=== PATIENT | female | born 1950 ===

== ENCOUNTER 2019-03-11 06:51 | Day surgery (SDC) | payer MEDICARE, OTHER ==
--- NOTE | 2019-03-04 15:36 | Opthalmology H&P ---
Ophthalmology H&P H&P Chief Complaint: decreased vision in right eye HPI Vision Affects Ability to: read, manage personal affairs HPI Narrative blurry vision Exam Visual Acuity: OD 20/100 OS 20/60 Tension: OD 12 OS 12 Eye Exam: normal OU: external exam, palpebral fissure-width, marginal reflex distance, levator function, corneas, anterior chambers, fundus exam; findings: lens - NS Cataracts OU Assessment/Plan Treatment Plan: cataract extraction w/ lens implant Goals of Treatment: improvement of vision, enhance quality of life Attestation Attestation The risks and benefits of the surgery as well as alternative procedures were explained to the patient in detail. Pipo Duval MD Mar 04, 2019 15:36
--- NOTE | 2019-03-04 15:38 | Pre-Procedure Note/Attestation ---
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 I attest that, if there was a reasonable possibility of needing a blood transfusion, the patient (or the patient's legal bottling equipment sales representative) was given the [facility] standardized written summary, pursuant to the Balwinder Cecilio Blood Safety Act ([place] Health and Safety Code # 1645, as amended). I attest that I re-evaluated the patient just prior to the surgery and that there has been no change in the patient's H&P, except as documented below: Pipo Duval MD Mar 04, 2019 15:38
--- NOTE | 2019-03-08 10:30 | NUR ---
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
[~2019-03-11] VITALS: Ht 152.4 cm; Wt 46.7 kg
[2019-03-11] VITALS (8 sets, daily range): BP systolic 117–138; BP diastolic 56–75
[2019-03-11] MEDS ORDERED: Tropicamide 1% Opth 15ml Soln RIGHT EYE SCH (07:00)
[2019-03-11] MEDS ORDERED: Cyclopentolate 1% Opth Sol 2ml RIGHT EYE SCH (07:00)
[2019-03-11] MEDS ORDERED: Proparacaine 0.5% Opth Soln 15ml RIGHT EYE ONE (07:00)
[2019-03-11] MEDS ORDERED: Akten 3.5% 1ml Btl RIGHT EYE ONE (07:00)
[2019-03-11] MEDS ORDERED: Diclofenac Sod 0.1% Op Soln RIGHT EYE SCH (07:00)
[2019-03-11] MEDS ORDERED: Tetracaine 0.5% Opth 4ml Soln RIGHT EYE ONE (07:00)
[2019-03-11] MEDS ORDERED: Phenylephrine 10% Opth Soln 5ml RIGHT EYE SCH (07:00)
[2019-03-11] MEDS ORDERED: Tobramycin Op Soln 0.3% 5ml RIGHT EYE SCH (09:30)
[2019-03-11] MEDS ORDERED: DICLOFENAC SODI75 MG ORAL (09:38)
[2019-03-11] MEDS ORDERED: FOLIC ACID1 MG ORAL (09:38)
[2019-03-11] MEDS ORDERED: ZOFRAN4 M3 ORAL (09:38)
[2019-03-11] MEDS ORDERED: METHOTREXATE2.5 MG PO (09:38)
[2019-03-11] MEDS ORDERED: HYDROXYCHLOROQ200 M1 PO (09:38)
[2019-03-11] MEDS ORDERED: GABAPENTIN300 MG ORAL (09:38)
[2019-03-11] MEDS ORDERED: NORCO 5-325 TA1 EACH ORAL (09:38)
[2019-03-11] MEDS ORDERED: VITAMIN D250000 UNI1 ORAL (09:38)
[2019-03-11] MEDS ORDERED: NAMENDA5 MG ORAL (09:38)
[2019-03-11] MEDS ORDERED: BSS 15ml BTL ONE (12:28)
[2019-03-11] MEDS ORDERED: Lidocaine 4% Amp ONE (12:28)
[2019-03-11] MEDS ORDERED: EPINEPHrine 1mg/1ml Amp ONE (12:28)
[2019-03-11] MEDS ORDERED: BSS 500ml btl ONE (12:28)
[2019-03-11] MEDS ORDERED: Polysporin Opth Oint 3.5gm ONE (12:28)
[2019-03-11] MEDS ORDERED: Povidone-Iodine 5% opth solution ONE (12:29)
[2019-03-11] MEDS ORDERED: Dexamethasone 4mg/ml vial ONE (12:30)
[2019-03-11] MEDS ORDERED: Pilocarpine 1% Opth 15ml Soln ONE (12:30)
[2019-03-11] MEDS ORDERED: Pred Forte 1% Opth Susp 1ml ONE (12:30)
[2019-03-11] MEDS ORDERED: LR 1000ml ONE (12:30)
--- NOTE | 2019-03-11 12:35 | Anethesia Preoperative Eval ---
Anesthesia Pre-op PMH/ROS General Date of Evaluation: Mar 11, 2019 Anesthesiologist: Sam ASA Score: ASA 2 Mallampati Score Class I : Soft palate, uvula, fauces, pillars visible Class II: Soft palate, uvula, fauces visible Class III: Soft palate, base of uvula visible Class IV: Only hard plate visible Mallampati Classification: Class II Surgeon: Simin Diagnosis: right cataract Surgical Procedure: right cataract extrction with IOl Anesthesia History: none Family History: no anesthesia problems Allergies: Coded Allergies: No Known Allergies (Unverified , 03/04/19) Medications: see eMAR Patient NPO?: Yes NPO Date: Mar 10, 2019 NPO Time: 20:00 Past Medical History Cardiovascular: Denies: HTN, CAD, [place], valve dz, arrhythmia, other Pulmonary: Denies: asthma, COPD, ANGEL, other Gastrointestinal/Genitourinary: Reports: GERD, other - chrons; Denies: CRI, ESRD Neurologic/Psychiatric: Denies: dementia, CVA, depression/anxiety, TIA, other Endocrine: Denies: DM, hypothyroidism, steroids, other HEENT: Denies: cataract (L), cataract (R), glaucoma, NEWTOK (L), NEWTOK (R), other Hematology/Immune: Denies: anemia, DVT, bleeding disorder, other Musculoskeletal/Integumentary: Reports: OA; Denies: RA, DJD, DDD, edema, other PSxH Narrative: UHR, c/s x3 Anesthesia Pre-op Phys. Exam Physician Exam Last Vital Signs Date Time Temp Pulse Resp B/P (MAP) Pulse Ox O2 Delivery O2 Flow Rate FiO2 03/11/19 09:52 Room Air 03/11/19 09:40 97.9 67 18 138/70 98 Constitutional: NAD Cardiovascular: RRR Respiratory: CTA Airway Exam Mallampati Score: Class II MO: full ROM: full Dentures: upper, lower Anesthesia Pre-op A/P Labs see chart Studies Pre-op Studies: EKG - sr Risk Assessment & Plan Assessment: ASA II Plan: MAC Status Change Before Surgery: No Pre-Antibiotics Drug: N/A Carol Alan MD Mar 11, 2019 12:35
[2019-03-11] MEDS ORDERED: Lidocaine 1% MPF 10mg/ml 5ml ONE (12:40)
[2019-03-11] MEDS ORDERED: fentaNYL 100 mcg/2 mL IV ONE (12:40)
[2019-03-11] MEDS ORDERED: LR 1000ml 1,000 ML IVLG SCH (12:43)
[2019-03-11] MEDS ORDERED: DiphenhydrAMINE 50mg/ml Inj IVP PRN (12:45)
[2019-03-11] MEDS ORDERED: Midazolam 2mg/2ml Inj ONE (12:46)
--- NOTE | 2019-03-11 13:21 | Immediate Post-Op Evaluation ---
Immediate Post-Op Evalulation Immediate Post-Op Evalulation Procedure: right cataract extraction with iol Date of Evaluation: Mar 10, 2019 Time of Evaluation: 22:00 IV Fluids: 200 Blood Products: 0 Estimated Blood Loss: 0 Urinary Output: 0 Blood Pressure Systolic: 133 Blood Pressure Diastolic: 75 Pulse Rate: 80 Respiratory Rate: 0 O2 Sat by Pulse Oximetry: 100 Temperature (Fahrenheit): 97.4 Pain Score (1-10): 0 Nausea: No Vomiting: No Complications 0 Patient Status: awake, reacts, patent, none Hydration Status: adequate Drug: N/A Carol Alan MD Mar 11, 2019 13:21
--- NOTE | 2019-03-11 13:22 | 48 Hour Post Anesthesia Eval ---
Post Anesthesia Evaluation Procedure: right cataract extraction with iol Date of Evaluation: Mar 11, 2019 Airway: patent Nausea: No Vomiting: No Pain Intensity: 0 Hydration Status: adequate Cardiopulmonary Status: at baseline Mental Status/LOC: patient returned to baseline Post-Anesthesia Complications: 0 Follow-up care needed: ready to discharge Carol Alan MD Mar 11, 2019 13:22
--- NOTE | 2019-03-13 14:51 | Brief Operative Note ---
Immediate Post Operative Note Operative Note Chief Complaint: Blurry vision Pre-op Diagnosis: Nuclear sclerotic cataract right eye Procedure: Cataract extraction with IOL implant right eye Findings: consistent w/pre-op dx studies Surgeon: Pipo Duval MD Anesthesiologist: Carol Boles MD Anesthesia: MAC Specimen: none Complications: none Condition: stable Fluids: LR Estimated Blood Loss: none Drains: none Implant(s) used?: Yes - IOL Pipo Duval MD Mar 13, 2019 14:50
--- NOTE | 2019-03-13 14:53 | Operative Note - PDOC ---
Operative Note Operative Note Date of Operation/Procedure: Mar 11, 2019 Chief Complaint: Blurry vision Pre-op Diagnosis: Nuclear sclerotic cataract right eye Procedure: Cataract extraction with IOL implant right eye Operative Findings: consistent w/pre-op dx studies Surgeon: Pipo Duval MD Anesthesiologist: Carol Boles MD Anesthesia: MAC Specimen: none Complications: none Condition: stable Fluids: LR Estimated Blood Loss: none Drains: none Implant(s) used?: Yes - IOL Indications for Procedure nuclear sclerotic cataract right eye Description of Procedure This patient has been complaining visually significant cataract in the right eye with the best corrected visual acuity of 20/60 under moderate glare conditions worse. The patient complains of difficulties with glare in performing activities of daily living and wants to manage personal affairs with comfort and accuracy and see well enough to move with safety at home and outdoors. The risks, benefits and alternatives of the procedure were discussed with the patient in the office prior to scheduling surgery. All questions from the patient were answered after the surgical procedure was explained in detail. The risks of the procedure as explained to the patient include, but are not limited to, pain, infection, bleeding, loss of vision, retinal detachment, need for further surgery, loss of lens nucleus, double vision, etc. Alternative procedures were discussed which include, to do nothing or seek a second opinion. Informed consent for this procedure was obtained from the patient. The patient was referred to a primary care physician for a cardiopulmonary clearance prior to surgery, after proper evaluation was done patient was properly scheduled for outpatient surgery. The patient was brought to the operating room where the anesthesiologist established I.V. lines and cardiac monitoring leads. Mild intravenous sedation was administered. The patient was then prepared with a 5% solution of povidone -iodine to the conjunctival fornix and lashes, and a 5% solution of povidone- iodine to the lids and periorbital skin. The patient was then draped in the usual sterile fashion. A lid speculum was then placed in the operative eye. A keratome blade was then used to create a biplanar incision into the anterior chamber. Viscoelastics was then instilled into the anterior chamber. A capsulorrhexis was then fashioned with an utrata forceps A G 27 cannula was used to hydrodissect and hydro delineate the lens nucleus. Paracentesis incision was made at 3 o'clock with sharp blade. The phacoemulsification unit, after being properly adjusted and tested, was then used to emulsify the nucleus. Residual cortical material was aspirated with the irrigation and aspiration unit. Healon was then instilled into the anterior chamber. The corneal wound was then enlarged to the size of the optic with the kemal keratome blade. The intraocular lens was then inspected for right power and size and thought to be satisfactory. Then the lens was gently placed in the capsular bag. Positioning within the capsular bag was confirmed by direct visualization. Optic centration was accomplished with a Sinskey hook. Viscoelastics was removed from the anterior chamber using the irrigation and aspiration unit. The corneal wound was then tested for leaks and none were found. The lid speculum were then removed. Sponge and needle counts were correct. An eye patch and shield were placed over the operative eye. The patient was taken to the recovery room in stable condition. There were no complications. The patient tolerated the procedure well. The patient was then transferred to the ambulatory surgery unit in stable and satisfactory condition , was given detailed written instructions and asked to follow up in the office the next day. Pipo Duval MD Mar 13, 2019 14:53
== END 2019-03-11 14:25 | disposition home or self-care (01) ==
LOC: SUR 06:51
DX: H25.11 Age-related nuclear cataract, right eye (principal); K21.9 Gastro-esophageal reflux disease without esophagitis
CPT/HCPCS: 66984; J0171; J1100; J2250; J3010; V2632; 94003; 94150